=== PATIENT | male | born 1980 ===

== ENCOUNTER → 2024-05-25 | Outpatient (BNVA) | payer BC, SELFPAY | END | disposition home or self-care (01) | PROVIDERS: PCP Internal Medicine; Referring Provider Internal Medicine; Visit Provider Urology | DX: N40.1 Benign prostatic hyperplasia with lower urinary tract symptoms (principal); N13.8 Other obstructive and reflux uropathy; R39.198 Other difficulties with micturition; Z98.52 Vasectomy status | CPT/HCPCS: 81003; 99212; G0463 ==